=== PATIENT | male | born 1995 | race Caucasian/White ===

== ENCOUNTER 2023-09-14 21:12 | Inpatient (IN) | payer OTHER ==
[2023-09-14] MEDS ORDERED: VANCOMYCIN IV PER PHARMACY 1 EACH MISC MISCELLANE PRN (22:04)
[2023-09-14 22:35] LABS: Basophils % (A) 0 %; Eosinophils # (A) 0.2 k/uL (0-0.7); Eosinophils % (A) 1 %; Lymphocytes # (A) 0.7 k/uL (1.0-4.8); Lymphocytes % (A) 3 %; MCHC 37.2 g/dL (31.0-37.0); MCV 83.3 fL (80.0-100.0); Mean Platelet Volume 7.1; Monocytes % (A) 4 %; Neutrophils # (A) 20.7 k/uL (1.3-7.7); Neutrophils % (A) 91 %; Platelet Count 305 k/uL (150-450); RBC 5.16 m/uL (4.30-5.90); RDW 12.4 % (11.5-15.5); WBC 22.9 k/uL (3.8-10.6)
[2023-09-14] MEDS: SODIUM CHLORIDE 0.9% 500 ML 500 ML IV SCH (22:50)
[2023-09-14] MEDS: IBUPROFEN 600 MG TAB PO STA (22:50)
[2023-09-14 23:02] LABS: ALT 24 U/L (4-49); AST 20 U/L (17-59); African American GFR (CKD) >90 (>60 ml/min/1.73 sqM); Albumin 4.5 g/dL (3.5-5.0); Alkaline Phosphatase 84 U/L (38-126); Anion Gap 11 mmol/L; Blood Urea Nitrogen 12 mg/dL (9-20); Calcium 9.4 mg/dL (8.4-10.2); Carbon Dioxide 24 mmol/L (22-30); Chloride 100 mmol/L (98-107); Glucose 125 mg/dL (74-99); Non-African American GFR(CKD) >90 (>60 ml/min/1.73 sqM); Potassium 3.5 mmol/L (3.5-5.1); Sodium 135 mmol/L (137-145); Total Bilirubin 0.9 mg/dL (0.2-1.3); Total Protein 7.5 g/dL (6.3-8.2)
[2023-09-14] MEDS: AMPICILLIN-SULBACTAM 3 GM in SODIUM CHLORIDE 0.9% 100 ML IVPB STA (23:52)
[2023-09-14] MEDS: LORazepam 2 MG/ML INJ IV STA (23:53)
[2023-09-14] MEDS: ONDANSETRON 4 MG/2 ML VIAL IVP STA (23:57)
[2023-09-15] MEDS: VANCOMYCIN 1,500 MG in SODIUM CHLORIDE 0.9% 500 ML 500 ML IVPB ONE (00:05)
--- NOTE | 2023-09-15 00:30 | CT ---
EXAM: CT Right Upper Extremity With Intravenous Contrast CLINICAL HISTORY: ITS.REASON CT Reason: right forearm - abscess/cellulitis/foreign body TECHNIQUE: Axial computed tomography images of the right upper extremity with intravenous contrast. CTDI is 15.8 mGy and DLP is 1316 mGy-cm. This CT exam was performed using one or more of the following dose reduction techniques: automated exposure control, adjustment of the mA and/or kV according to patient size, and/or use of iterative reconstruction technique. Coronal and sagittal reformatted images were created and reviewed. 1121 images COMPARISON: No relevant prior studies available. FINDINGS: Limitations: Limitation: Motion artifact decreases sensitivity of this exam. Bones/joints: No acute findings. Soft tissues: Moderate subcutaneous soft tissue edema in the volar aspect of the forearm with overlying skin thickening suggests cellulitis. No soft tissue gas or foreign object. IMPRESSION: Moderate subcutaneous soft tissue edema in the volar aspect of the forearm with overlying skin thickening suggests cellulitis.
--- NOTE | 2023-09-15 00:37 | ED ---
General Adult HPI - General Chief complaint: Skin/Abscess/Foreign Body Stated complaint: Abscess on Right Arm Time Seen by Provider: 09/14/23 21:20 Source: patient, EMS Mode of arrival: EMS Limitations: no limitations - History of Present Illness Initial comments: 27-year-old male with past medical history of alcohol abuse, heroin abuse who pr esents emergency department from [facility]. He noticed that he had some redness and swelling to his right forearm on Friday when he got to the facility. They have been monitoring it however they did not provide him with any medications such as antibiotics. The swelling and pain has gotten worse in the extremity and patient was transported over for further evaluation. He does arrive with a low-grade fever. Has intense pain in his right forearm. No drainage. There is red streaking which is going into his right axillary region. Patient has nausea with vomiting. Denies history of MRSA. Denies concern for retained needle. No other alleviating, precipitating or modifying factors - Related Data Home Medications Medication Instructions Recorded Confirmed Acetaminophen Tab [Tylenol] 650 mg PO Q4H PRN 09/15/23 09/15/23 Calcium/Magnesium/Zinc W/Vitamin D 1 tab PO TID PRN 09/15/23 09/15/23 334/134/5mg Chlorpheniramine Maleate 4 mg PO Q4H PRN 09/15/23 09/15/23 [Chlor-Trimeton] Hyoscyamine Sulfate [Levsin] 0.125 mg PO QID PRN 09/15/23 09/15/23 Ibuprofen [Motrin Ib] 600 mg PO Q6H PRN 09/15/23 09/15/23 Loperamide [Imodium] 4 mg PO QID PRN 09/15/23 09/15/23 Mylanta 30 ml PO Q4H PRN 09/15/23 09/15/23 buprenorphine HCL [Subutex] See Taper SL DIRECTED 09/15/23 09/15/23 cloNIDine HCL [Catapres] 0.1 mg PO Q4H PRN 09/15/23 09/15/23 ondansetron HCL [Zofran] 8 mg PO Q6H PRN 09/15/23 09/15/23 Allergies Allergy/AdvReac Type Severity Reaction Status Date / Time No Known Allergies Allergy Verified 09/15/23 08:53 Review of Systems ROS Statement: Those systems with pertinent positive or pertinent negative responses have been documented in the HPI. ROS Other: All systems not noted in ROS Statement are negative. Past Medical History History of Any Multi-Drug Resistant Organisms: None Reported Past Psychological History: Bipolar, Depression Smoking Status: Vaper Past Alcohol Use History: Daily, Heavy Past Drug Use History: Cocaine, IV Drug Use General Exam Limitations: no limitations General appearance: alert, in no apparent distress Head exam: Present: atraumatic, normocephalic, normal inspection Eye exam: Present: normal appearance, PERRL, EOMI. Absent: scleral icterus, conjunctival injection, periorbital swelling ENT exam: Present: normal exam, mucous membranes moist Neck exam: Present: normal inspection. Absent: tenderness, meningismus, lymphadenopathy Respiratory exam: Present: normal lung sounds bilaterally. Absent: respiratory distress, wheezes, rales, rhonchi, stridor Cardiovascular Exam: Present: regular rate, normal rhythm, normal heart sounds. Absent: systolic murmur, diastolic murmur, rubs, gallop, clicks GI/Abdominal exam: Present: soft, normal bowel sounds. Absent: distended, tenderness, guarding, rebound, rigid Extremities exam: Present: tenderness (To palpation of the right anterior forearm. There is overlying redness and induration. No fluctuance appreciated. 2+ radial and ulnar pulses. Compartments are soft), normal capillary refill. Absent: pedal edema, joint swelling, calf tenderness Back exam: Present: normal inspection Neurological exam: Present: alert, oriented X3, CN II-XII intact Psychiatric exam: Present: normal affect, normal mood Skin exam: Present: warm, dry, intact, normal color. Absent: rash Course Vital Signs 09/14/23 09/15/23 09/15/23 21:18 00:15 01:08 Temperature 100.0 F H Pulse Rate 68 69 68 Pulse Rate [ Pulse Oximetery ] Respiratory 18 16 18 Rate Blood Pressure 162/96 172/114 169/87 Blood Pressure [Supine] O2 Sat by Pulse 98 100 100 Oximetry 09/15/23 09/15/23 01:40 02:04 Temperature 98.6 F Pulse Rate 68 Pulse Rate [ 91 Pulse Oximetery ] Respiratory 18 20 Rate Blood Pressure 169/87 Blood Pressure 159/97 [Supine] O2 Sat by Pulse 100 100 Oximetry Medical Decision Making - Medical Decision Making Was pt. sent in by a medical professional or institution (, [facility], [employer] REPA[employer], urgent care, hospital, or assisted...) When possible be specific @ -Patient sent in from [facility] Did you speak to anyone other than the patient for history (EMS, parent, family, police, friend...)? What history was obtained from this source @ -Spoke with EMS for history Did you review nursing and triage notes (agree or disagree)? Why? @ -I reviewed and agree with nursing and triage notes Were old charts reviewed (outside hosp., previous admission, EMS record, old EKG, old radiological studies, urgent care reports/EKG's, assisted records)? Report findings @ -Reviewed the patient's chart from [facility] Differential Diagnosis (chest pain, altered mental status, abdominal pain women, abdominal pain men, vaginal bleeding, weakness, fever, dyspnea, syncope, headache, dizziness, GI bleed, back pain, seizure, CVA, palpatations, mental health, musculoskeletal)? @ -Abscess, cellulitis, DVT EKG interpreted by me (3pts min.). @ -yes, Demonstrates sinus rhythm with rate of 72. AK interval 148. QRS 86. QTc 418. No acute ST segment elevations or depressions X-rays interpreted by me (1pt min.). @ -None done CT interpreted by me (1pt min.). @ -yes, was completed and does not demonstrate an abscess at this time but does demonstrate cellulitis U/S interpreted by me (1pt. min.). @ -None done What testing was considered but not performed or refused? (CT, X-rays, U/S, labs)? Why? @ -None What meds were considered but not given or refused? Why? @ -None Did you discuss the management of the patient with other professionals (professionals i.e. , [facility], TR[employer] B[employer] REPAIRER, lab, RT, psych nurse, certified social workers in health care, hog driver, teacher, workers' compensation hearings officer, case work aide)? Give summary @ -Spoke with [facility] for admission Was smoking cessation discussed for >3mins.? @ -No Was critical care preformed (if so, how long)? @ -No Were there social determinants of health that impacted care today? How? (Homelessness, low income, unemployed, alcoholism, drug addiction, transportation, low edu. Level, literacy, decrease access to med. care, long term, rehab)? @ -Patient is currently in rehab. Redness was noted however patient was never started on antibiotics Was there de-escalation of care discussed even if they declined (Discuss DNR or withdrawal of care, Hospice)? DNR status @ -No What co-morbidities impacted this encounter? (DM, HTN, Smoking, COPD, CAD, Cancer, CVA, ARF, Chemo, Hep., AIDS, mental health diagnosis, sleep apnea, morbid obesity)? @ -IVDA Was patient admitted / discharged? Hospital course, mention meds given and route, prescriptions, significant lab abnormalities, going to OR and other pertinent info. @ -Upon arrival patient was placed into room 26. Thorough history and physical exam was performed. Patient's right arm was evaluated and is indurated. IV was established. Laboratory studies are conducted. CT was performed which demonstrated source of infection as cellulitis without abscess. This was at 0029. patient does receive antibiotics and IV fluids. Patient requires admission to the hospital due to advanced cellulitis. He was agreeable to this. Spoke with [facility] - Dr. Colvin for admission Undiagnosed new problem with uncertain prognosis? @ -No Drug Therapy requiring intensive monitoring for toxicity (Heparin, Nitro, Insulin, Cardizem)? @ -No Were any procedures done? @ -No Diagnosis/symptom? @ -Acute right forearm cellulitis, evaluation for abscess, history of IVDA, leukocytosis Acute, or Chronic, or Acute on Chronic? @ -Acute Uncomplicated (without systemic symptoms) or Complicated (systemic symptoms)? @ -Complicated Side effects of treatment? @ -No Exacerbation, Progression, or Severe Exacerbation? @ -No Poses a threat to life or bodily function? How? (Chest pain, [place], [place], pneumonia, PE, COPD, DKA, ARF, appy, cholecystitis, CVA, Diverticulitis, Homicidal, Suicidal, threat to staff... and all critical care pts) @ -Yes as patient is diagnosed with sepsis - Lab Data Result diagrams: 09/19/23 07:45 09/19/23 07:45 Lab Results 09/14/23 09/14/23 09/14/23 Range/Units 22:23 22:23 22:23 WBC 22.9 H (3.8-10.6) k/uL RBC 5.16 (4.30-5.90) m/uL Hgb 16.0 (13.0-17.5) gm/dL Hct 43.0 (39.0-53.0) % MCV 83.3 (80.0-100.0) fL MCH 31.0 (25.0-35.0) pg MCHC 37.2 H (31.0-37.0) g/dL RDW 12.4 (11.5-15.5) % Plt Count 305 (150-450) k/uL MPV 7.1 Neutrophils % 91 % Lymphocytes % 3 % Monocytes % 4 % Eosinophils % 1 % Basophils % 0 % Neutrophils # 20.7 H (1.3-7.7) k/uL Lymphocytes # 0.7 L (1.0-4.8) k/uL Monocytes # 1.0 (0-1.0) k/uL Eosinophils # 0.2 (0-0.7) k/uL Basophils # 0.0 (0-0.2) k/uL Sodium 135 L (137-145) mmol/L Potassium 3.5 (3.5-5.1) mmol/L Chloride 100 (98-107) mmol/L Carbon Dioxide 24 (22-30) mmol/L Anion Gap 11 mmol/L BUN 12 (9-20) mg/dL Creatinine 0.54 L (0.66-1.25) mg/dL Est GFR (CKD-EPI)AfAm >90 (>60 ml/min/1.73 sqM) Est GFR (CKD-EPI)NonAf >90 (>60 ml/min/1.73 sqM) Glucose 125 H (74-99) mg/dL Plasma Lactic Acid Byron 1.0 (0.7-2.0) mmol/L Calcium 9.4 (8.4-10.2) mg/dL Total Bilirubin 0.9 (0.2-1.3) mg/dL AST 20 (17-59) U/L ALT 24 (4-49) U/L Alkaline Phosphatase 84 (38-126) U/L Total Protein 7.5 (6.3-8.2) g/dL Albumin 4.5 (3.5-5.0) g/dL Disposition Clinical Impression: Cellulitis Disposition: ADMITTED IP TO THIS HOSP Condition: Stable Is patient prescribed a controlled substance at d/c from ED?: No Time of Disposition: 00:51 Decision to Admit Reason: Admit from EC Decision Date: 09/15/23 Decision Time: 00:51
[2023-09-15] MEDS ORDERED: NALOXONE 0.4 MG/ML 1 ML VIAL IV PRN (00:51)
[2023-09-15] MEDS: LORazepam 2 MG/ML INJ IV STA (00:51)
[2023-09-15] MEDS: ACETAMINOPHEN TAB 325 MG TAB PO PRN (02:07)
[2023-09-15] MEDS: SODIUM CHLORIDE 0.9% 1,000 ML IV SCH (03:13)
[2023-09-15] MEDS: VANCOMYCIN 1,500 MG in SODIUM CHLORIDE 0.9% 500 ML 500 ML IVPB SCH (07:41)
[2023-09-15] MEDS: ONDANSETRON 4 MG/2 ML VIAL IVP PRN (07:42)
[2023-09-15] MEDS: hydrOXYzine HCL 25 MG TAB PO STA (09:05)
--- NOTE | 2023-09-15 10:55 | P.HPIM ---
History of Present Illness This is a pleasant 27 years old male with known history of substance abuse. He went to [facility] last Friday because he is tired of his lifestyle and he wants to quit his substance abuse, he injects opioids and fentanyl and drinks alcohol 1 pint per day and he was counseled to quit and patient agrees Also patient is cigarette smoker 1 pack/day and he was counseled to quit and he agrees to the nicotine patch The same day he went to [facility] [place] he was having small area of redness in his right forearm which gradually get worse and now extending through the entire right forearm mainly on the ventral surface with some swelling warmth and tenderness. No loss of function in the hand or numbness or significant weakness. He denies chest pain or dyspnea or coughing no dizziness headache weakness or numbness However patient has low appetite for 4 days, persistent vomiting with no blood, he denies abdominal pain but he has little discomfort in his upper abdomen most likely related to his relentless vomiting. He is having no bowel movement but passing gas. He feels anxious but he denies depression, he denies suicidal or homicidal ideation, he denies delusion or hallucination Patient is hemodynamically stable, he has low-grade temperature about 100 He has leukocytosis of 22,000 Rest of CBC, BMP and liver enzymes were unremarkable Right upper extremity ultrasound showing thick skin and edema showing cellulitis, no strong evidence of an abscess EKG showing sinus rhythm at [address]-T changes and QTc 418 Patient currently covered with IV vancomycin and Normal Saline at 130 mL/h Review of Systems Review of systems CONSTITUTIONAL: No fever, no malaise, no fatigue. HEENT: No recent visual problems or hearing problems. Denied any sore throat. CARDIOVASCULAR: No orthopnea, PND, no palpitations, no syncope. PULMONARY: No shortness of breath, no cough, no hemoptysis. GASTROINTESTINAL: No diarrhea, no abdominal pain. Normoactive bowel sounds. NEUROLOGICAL: No headaches, no weakness, no numbness. HEMATOLOGICAL: Denies any bleeding or petechiae. GENITOURINARY: Denies any burning micturition, frequency, or urgency. -MUSCULOSKELETAL/RHEUMATOLOGICAL: Denies any joint pain, swelling, or any muscle pain. Except above ENDOCRINE: Denies any polyuria or polydipsia. Past Medical History History of Any Multi-Drug Resistant Organisms: None Reported Past Surgical History: No Surgical Hx Reported Past Psychological History: Bipolar, Depression Smoking Status: Vaper Past Alcohol Use History: Daily, Heavy Past Drug Use History: Cocaine, IV Drug Use Medications and Allergies Home Medications Medication Instructions Recorded Confirmed Type Acetaminophen Tab [Tylenol] 650 mg PO Q4H PRN 09/15/23 09/15/23 History Calcium/Magnesium/Zinc W/Vitamin D 1 tab PO TID PRN 09/15/23 09/15/23 History 334/134/5mg Chlorpheniramine Maleate 4 mg PO Q4H PRN 09/15/23 09/15/23 History [Chlor-Trimeton] Hyoscyamine Sulfate [Levsin] 0.125 mg PO QID PRN 09/15/23 09/15/23 History Ibuprofen [Motrin Ib] 600 mg PO Q6H PRN 09/15/23 09/15/23 History Loperamide [Imodium] 4 mg PO QID PRN 09/15/23 09/15/23 History Mylanta 30 ml PO Q4H PRN 09/15/23 09/15/23 History buprenorphine HCL [Subutex] See Taper SL DIRECTED 09/15/23 09/15/23 History cloNIDine HCL [Catapres] 0.1 mg PO Q4H PRN 09/15/23 09/15/23 History ondansetron HCL [Zofran] 8 mg PO Q6H PRN 09/15/23 09/15/23 History Allergies Allergy/AdvReac Type Severity Reaction Status Date / Time No Known Allergies Allergy Verified 09/15/23 08:53 Physical Exam Vitals: Vital Signs Temp Pulse Pulse Resp BP BP Pulse Ox 09/15/23 09:54 100 09/15/23 07:30 98.1 F 73 20 159/82 100 09/15/23 02:04 98.6 F 91 20 159/97 100 09/15/23 01:40 68 18 169/87 100 09/15/23 01:08 68 18 169/87 100 09/15/23 00:15 69 16 172/114 100 09/14/23 21:18 100.0 F H 68 18 162/96 98 Intake and Output 09/14/23 09/15/23 09/15/23 22:59 06:59 14:59 Intake Total 480 Balance 480 Intake: Oral 480 Other: # Voids 1 Weight 90.718 kg 90.718 kg GENERAL: The patient is alert and oriented x3, not in any acute distress. Well developed, well nourished. HEENT: Pupils are round and equally reacting to light. EOMI. No scleral icterus. No conjunctival pallor. Normocephalic, atraumatic. No pharyngeal erythema. No thyromegaly. CARDIOVASCULAR: S1 and S2 present. No murmurs, rubs, or gallops. PULMONARY: Chest is clear to auscultation, no wheezing , no crackles. ABDOMEN: Soft, nontender, nondistended, normoactive bowel sounds. No palpable organomegaly. MUSCULOSKELETAL: No joint swelling or deformity. -EXTREMITIES: No cyanosis, clubbing, or pedal edema. Right forearm swelling redness and tenderness NEUROLOGICAL: Gross neurological examination did not reveal any focal deficits. SKIN: No rashes. no petechiae. Results CBC & Chem 7: 09/14/23 22:23 09/14/23 22:23 Labs: Abnormal Lab Results - Last 24 Hours (Table) 09/14/23 09/14/23 Range/Units 22:23 22:23 WBC 22.9 H (3.8-10.6) k/uL MCHC 37.2 H (31.0-37.0) g/dL Neutrophils # 20.7 H (1.3-7.7) k/uL Lymphocytes # 0.7 L (1.0-4.8) k/uL Sodium 135 L (137-145) mmol/L Creatinine 0.54 L (0.66-1.25) mg/dL Glucose 125 H (74-99) mg/dL Thrombosis Risk Factor Assmnt - Choose All That Apply Any of the Below Risk Factors Present?: Yes Each Factor Represents 1 point: Obesity (BMI >25) Thrombosis Risk Factor Assessment Total Risk Factor Score: 1 Thrombosis Risk Factor Assessment Level: Low Risk Assessment and Plan Assessment: Acute right forearm cellulitis, severe on admission Sepsis with fever and leukocytosis, present on admission Substance abuse with opioids with IV drug abuse with fentanyl and others Alcohol use disorder at risk of alcohol withdrawal Nicotine dependence Anxiety, most likely related to substance abuse and withdrawal Plan: Continue with antibiotic with infectious disease consult. Currently on IV vancomycin Continue with aggressive IV hydration Start Librium 3 times daily to help with his alcohol withdrawal, substance withdrawal as well as anxiety Resume his Librium from [place] place it as a scheduled 0.1 mg twice daily Check KUB and venous Doppler ultrasound rule out DVT Labs and medication were reviewed.. Continue same treatment. Continue with symptomatic treatment. Resume home medication. Monitor labs and vitals. DVT and GI prophylaxis. Further recommendations as per clinical course of the patient DVT prophylaxis: Subcutaneous heparin GI Prophylaxis: Pepcid Prognosis is guarded
[2023-09-15] MEDS: cloNIDine HCL 0.1 MG TAB PO SCH (11:37)
[2023-09-15] MEDS: NICOTINE 21MG/24HR PATCH TRANSDERM STA (11:38)
--- NOTE | 2023-09-15 11:53 | XR ---
EXAMINATION TYPE: XR KUB DATE OF EXAM: 09/15/2023 11:27 AM CLINICAL INDICATION:Male, 27 years old with history of vomiting; COMPARISON: None. TECHNIQUE: One radiographic view of the abdomen was obtained. FINDINGS: The bowel gas pattern is nonspecific without dilated loops of small or large bowel. There i s no evidence for organomegaly or pneumoperitoneum. The osseous structures are intact. No abnormal calcifications are present. Fecal material and gas are demonstrated throughout the colon and rectum. IMPRESSION: Nonspecific bowel gas pattern without radiographic evidence for acute process.
--- NOTE | 2023-09-15 13:46 | US ---
EXAMINATION TYPE: US venous doppler duplex UE RT DATE OF EXAM: 09/15/2023 COMPARISON: NONE CLINICAL INDICATION: Male, 27 years old with history of cellulitis; No hx of DVT. Cellulitis SIDE PERFORMED: Right arm Right Arm: No evidence of DVT. Radial and ulnar veins appear to stay separate through the upper arm, appear to branch from axillary vein. Great amount of forearm edema seen at area of redness. Unable to visualize cephalic vein. IMPRESSION: 1. No evidence for deep vein tendinosis. 2. Unable to visualize the cephalic vein possibly due to thrombosis. Correlate clinically. 3. subcutaneous edema throughout the arm correlate possible secondary to #2. Correlate for celluliti s.
[2023-09-15] MEDS: HYOSCYAMINE SULFATE 0.125 MG TAB PO PRN (14:06)
[2023-09-15] MEDS: IBUPROFEN 400 MG TAB PO PRN (17:47)
[2023-09-15] MEDS: FAMOTIDINE 20 MG/2 ML VIAL IV SCH (21:02)
[2023-09-15] MEDS: HEPARIN SODIUM,PORCINE 5,000 UNIT/ML 1 ML VIAL SQ SCH (21:03)
[2023-09-15] MEDS: LORazepam 2 MG/ML INJ IV PRN ×2 (21:56→23:46)
--- NOTE | 2023-09-15 23:38 | P.CONS ---
History of Present Illness - Reason for Consult Consult date: 09/15/23 Right arm cellulitis history of IVDA Requesting physician: Julissa Lechuga - Chief Complaint Swelling redness of the right arm x few days - History of Present Illness Patient is a 27-year-old male past medical history significant for bipolar depression and history of IV drug use for more than 15 years presenting to the hospital from the [facility] for evaluation of worsening swelling and redness to the right forearm patient mention he did missed while injecting in a hurry and the next day noticed to have increasing swelling redness to the right forearm that has progressed to get worse over the last few days patient complaining of pain to be sharp about 8 out of 10 without any radiation with associated swelling redness denies high-grade fever on presentation to the hospital patient did have a temperature of 100 F patient was not tachycardic hypotensive or hypoxic did have a white count of 22.9 creatinine [address] moderate subcutaneous soft tissue edema suggesting cellulitis patient was started on vancomycin cultures obtained currently pending infectious he was consulted for further management of antibiotic therapy Review of Systems Positive point and negatives has been mentioned in the HPI, complete review of systems was performed and all other systems are negative Past Medical History History of Any Multi-Drug Resistant Organisms: None Reported Past Surgical History: No Surgical Hx Reported Past Psychological History: Bipolar, Depression Smoking Status: Vaper Past Alcohol Use History: Daily, Heavy Past Drug Use History: Cocaine, IV Drug Use Medications and Allergies Home Medications Medication Instructions Recorded Confirmed Type Acetaminophen Tab [Tylenol] 650 mg PO Q4H PRN 09/15/23 09/15/23 History Calcium/Magnesium/Zinc W/Vitamin D 1 tab PO TID PRN 09/15/23 09/15/23 History 334/134/5mg Chlorpheniramine Maleate 4 mg PO Q4H PRN 09/15/23 09/15/23 History [Chlor-Trimeton] Hyoscyamine Sulfate [Levsin] 0.125 mg PO QID PRN 09/15/23 09/15/23 History Ibuprofen [Motrin Ib] 600 mg PO Q6H PRN 09/15/23 09/15/23 History Loperamide [Imodium] 4 mg PO QID PRN 09/15/23 09/15/23 History Mylanta 30 ml PO Q4H PRN 09/15/23 09/15/23 History buprenorphine HCL [Subutex] See Taper SL DIRECTED 09/15/23 09/15/23 History cloNIDine HCL [Catapres] 0.1 mg PO Q4H PRN 09/15/23 09/15/23 History ondansetron HCL [Zofran] 8 mg PO Q6H PRN 09/15/23 09/15/23 History Allergies Allergy/AdvReac Type Severity Reaction Status Date / Time No Known Allergies Allergy Verified 09/15/23 08:53 Physical Exam Vitals: Vital Signs Temp Pulse Pulse Resp BP BP Pulse Ox 09/15/23 09:54 100 09/15/23 07:30 98.1 F 73 20 159/82 100 09/15/23 02:04 98.6 F 91 20 159/97 100 09/15/23 01:40 68 18 169/87 100 09/15/23 01:08 68 18 169/87 100 09/15/23 00:15 69 16 172/114 100 09/14/23 21:18 100.0 F H 68 18 162/96 98 Intake and Output 09/14/23 09/15/23 09/15/23 22:59 06:59 14:59 Intake Total 480 Balance 480 Intake: Oral 480 Other: # Voids 1 Weight 90.718 kg 90.718 kg GENERAL DESCRIPTION: Middle-aged male lying in bed, no distress. No tachypnea or accessory muscle of respiration use. HEENT: Shows Pallor , no scleral icterus. Oral mucous membrane is dry. No pharyngeal erythema or thrush NECK: Trachea central, no thyromegaly. LUNGS: Unlabored breathing. Clear to auscultation anteriorly. No wheeze or crackle. HEART: S1, S2, regular rate and rhythm. No loud murmur ABDOMEN: Soft, no tenderness , guarding or rigidity, no organomegaly EXTREMITIES: Significant swelling redness of the right forearm which is warm and tender to touch SKIN: No rash, no masses palpable. NEUROLOGICAL: The patient is awake, alert, oriented x3, mood and affect normal. Results CBC & Chem 7: 09/19/23 07:45 09/19/23 07:45 Labs: Abnormal Lab Results - Last 24 Hours (Table) 09/14/23 09/14/23 Range/Units 22:23 22:23 WBC 22.9 H (3.8-10.6) k/uL MCHC 37.2 H (31.0-37.0) g/dL Neutrophils # 20.7 H (1.3-7.7) k/uL Lymphocytes # 0.7 L (1.0-4.8) k/uL Sodium 135 L (137-145) mmol/L Creatinine 0.54 L (0.66-1.25) mg/dL Glucose 125 H (74-99) mg/dL Assessment and Plan (1) Abscess of right forearm Status: Acute Code(s): L02.413 - CUTANEOUS ABSCESS OF RIGHT UPPER LIMB S NOMED Code(s): 95684147416423098 (2) Cellulitis Status: Acute Code(s): L03.90 - CELLULITIS, UNSPECIFIED SNOMED Code(s): 199978273 (3) IV drug user Status: Acute Code(s): F19.90 - OTHER PSYCHOACTIVE SUBSTANCE USE, UNSPECIFIED, UNCOMPLICATED SNOMED Code(s): 472564506 Plan: 1patient was in the hospital right forearm pain swelling redness in this patient who did have history of injection drug use and apparently missed a vein while injecting into the right forearm with subsequent development of this abscess likely from gram-positive skin en gram-negative infection less likely but not entirely excluded 2-patient benefit of surgical evaluation and possible drainage of this abscess and deep culture 3. Will cover with vancomycin pharmacy to dose while watching his kidney function closely- We will follow on clinical condition and cultures to further adjust medication if needed Thank you for this consultation we will follow the patient along with you Dictation was produced using [employer] dictation software. please excuse any grammatical, word or spelling errors. Time with Patient: Greater than 30
[2023-09-16] MEDS: LORazepam 2 MG/ML INJ IV PRN (03:51)
[2023-09-16] MEDS: VANCOMYCIN TROUGH DUE 1 EACH MISC MISCELLANE ONE (07:41)
[2023-09-16] MEDS: THIAMINE 100 MG/ML 2 ML VIAL IVP SCH (09:12)
[2023-09-16] MEDS: hydrOXYzine HCL 25 MG TAB PO PRN (09:12)
[2023-09-16 11:01] LABS: Basophils # (A) 0.04 X 10*3/uL (0.00-0.10); Basophils % (A) 0.3 %; Eosinophils # (A) 0.13 X 10*3/uL (0.04-0.35); Eosinophils % (A) 1.1 %; HCT 38.9 % (39.6-50.0); HGB 13.4 g/dL (13.0-17.0); Lymphocytes # (A) 1.06 X 10*3/uL (0.90-5.00); MCH 28.8 pg (27.0-32.0); MCHC 34.4 g/dL (32.0-37.0); MCV 83.7 FL (80.0-97.0); Mean Platelet Volume 9.4 FL (9.5-12.2); Monocytes # (A) 0.83 X 10*3/uL (0.20-1.00); Monocytes % (A) 7.1 %; NRBC Per 100 WBC 0 X 10*3/uL (0.00-0.01); Neutrophils # (A) 9.66 X 10*3/uL (1.80-7.70); Neutrophils % (A) 82.2 %; Platelet Count 255 X 10*3/uL (140-440); RBC 4.65 X 10*6/uL (4.40-5.60); RDW 12.4 % (11.5-14.5); WBC 11.76 X 10*3/uL (4.50-10.00)
[2023-09-16 11:18] LABS: ALT 27 U/L (10-49); AST 20 U/L (14-35); Albumin 3.8 g/dL (3.8-4.9); Albumin/Globulin Ratio 1.58 Ratio (1.60-3.17); Alkaline Phosphatase 71 U/L (41-126); Bilirubin, Conjugated <0.20 mg/dL (0.20-0.40); Bilirubin,Unconjugated >0.40 mg/dL (0.20-1.00); Blood Urea Nitrogen 7.7 mg/dL (9.0-27.0); Calcium 9.4 mg/dL (8.7-10.3); Carbon Dioxide 22.7 mmol/L (21.6-31.8); Chloride 108 mmol/L (96-109); Globulin 2.4 g/dL (1.6-3.3); Glucose 92 mg/dL (70-110); Potassium 3.5 mmol/L (3.5-5.5); Sodium 144 mmol/L (135-145); Total Bilirubin 0.6 mg/dL (0.3-1.2); Total Protein 6.2 g/dL (6.2-8.2)
--- NOTE | 2023-09-16 12:22 | P.PN ---
Subjective This is a pleasant 27 years old male with known history of substance abuse. He went to [place] last Friday because he is tired of his lifestyle and he wants to quit his substance abuse, he injects opioids and fentanyl and drinks alcohol 1 pint per day and he was counseled to quit and patient agrees Also patient is cigarette smoker 1 pack/day and he was counseled to quit and he agrees to the nicotine patch The same day he went to [place] he was having small area of redness in his right forearm which gradually get worse and now extending through the entire right forearm mainly on the ventral surface with some swelling warmth and tenderness. No loss of function in the hand or numbness or significant weakness. He denies chest pain or dyspnea or coughing no dizziness headache weakness or numbness However patient has low appetite for 4 days, persistent vomiting with no blood, he denies abdominal pain but he has little discomfort in his upper abdomen most likely related to his relentless vomiting. He is having no bowel movement but passing gas. He feels anxious but he denies depression, he denies suicidal or homicidal brien ation, he denies delusion or hallucination Patient is hemodynamically stable, he has low-grade temperature about 100 He has leukocytosis of 22,000 Rest of CBC, BMP and liver enzymes were unremarkable Right upper extremity ultrasound showing thick skin and edema showing cellulitis, no strong evidence of an abscess EKG showing sinus rhythm at [address]-T changes and QTc 418 Patient currently covered with IV vancomycin and Normal Saline at 130 mL/h 09/16/2023 Patient right forearm cellulitis significantly improved almost more than 50% while he was started on IV vancomycin IV fluids were discontinued He is developing alcohol withdrawal and last night he has high CIWA protocol, he was already on Librium 20 mg 3 times daily, CIWA protocol was started. He is more sleepy this morning and more calm. KUB of the abdomen is reviewed by myself showing no significant obstruction Ultrasound of the right upper extremity reviewed by myself showing no deep venous thrombosis also with the radiologist Review of systems CONSTITUTIONAL: No fever, no malaise, no fatigue. HEENT: No recent visual problems or hearing problems. Denied any sore throat. CARDIOVASCULAR: No orthopnea, PND, no palpitations, no syncope. PULMONARY: No shortness of breath, no cough, no hemoptysis. GASTROINTESTINAL: No diarrhea, no nausea, no vomiting, no abdominal pain. Normoactive bowel sounds. Active Medications Generic Name Dose Route Start Last Admin Trade Name Freq PRN Reason Stop Dose Admin Acetaminophen 650 mg 09/15/23 00:51 09/16/23 06:38 Acetaminophen Tab 325 Mg Tab PO 650 mg Q6HR PRN Administration Mild Pain or Fever > 100.5 Chlordiazepoxide HCl 20 mg 09/15/23 10:45 09/16/23 09:23 Chlordiazepoxide 10 Mg Cap PO 20 mg TID JERRI Administration Clonidine 0.1 mg 09/15/23 11:00 09/16/23 09:12 Clonidine Hcl 0.1 Mg Tab PO 0.1 mg BID JERRI Administration Famotidine 20 mg 09/15/23 21:00 09/16/23 09:11 Famotidine 20 Mg/2 Ml Vial IV 20 mg Q12HR JERRI Administration Heparin Sodium (Porcine) 5,000 unit 09/15/23 21:00 09/16/23 09:11 Heparin Sodium,Porcine 5,000 Unit/Ml 1 Ml Vial SQ Not Given Q12HR JERRI Hydroxyzine HCl 25 mg 09/15/23 08:30 09/16/23 09:12 Hydroxyzine Hcl 25 Mg Tab PO 25 mg QID PRN Administration Anxiety Hyoscyamine 0.125 mg 09/15/23 10:50 09/15/23 14:06 Hyoscyamine Sulfate 0.125 Mg Tab PO 0.125 mg QID PRN Administration GI Upset Sodium Chloride 1,000 mls @ 75 mls/hr 09/15/23 01:00 09/16/23 11:41 Saline 0.9% IV 75 mls/hr .[id number] JERRI Administration Vancomycin HCl 1,500 mg/ 500 mls @ 167 mls/hr 09/15/23 08:00 09/16/23 09:26 Sodium Chloride IVPB 167 mls/hr Q8H JERRI Administration Ibuprofen 400 mg 09/15/23 00:51 09/16/23 01:23 Ibuprofen 400 Mg Tab PO 400 mg Q6HR PRN Administration Mild Pain or Fever > 100.5 Lorazepam 1 mg 09/15/23 21:42 09/16/23 01:24 Lorazepam 2 Mg/Ml Inj IV 1 mg Q1HR PRN Administration CIWA 10 to 15 Lorazepam 1 mg 09/15/23 21:42 09/16/23 09:23 Lorazepam 2 Mg/Ml Inj IV 1 mg Q2HR PRN Administration CIWA 8 or 9 Lorazepam 2 mg 09/15/23 21:42 09/15/23 23:46 Lorazepam 2 Mg/Ml Inj IV 09/17/23 21:44 2 mg Q10M PRN Administration CIWA 16 or higher Naloxone HCl 0.2 mg 09/15/23 00:51 Naloxone 0.4 Mg/Ml 1 Ml Vial IV Q2M PRN Opioid Reversal Ondansetron HCl 4 mg 09/15/23 00:51 09/16/23 03:51 Ondansetron 4 Mg/2 Ml Vial IVP 4 mg Q8HR PRN Administration Nausea And Vomiting Thiamine HCl 100 mg 09/16/23 09:00 09/16/23 09:12 Thiamine 100 Mg/Ml 2 Ml Vial IVP 100 mg DAILY JERRI Administration Objective - Vital Signs Vital signs: Vital Signs Temp 97.4 F L 09/16/23 07:09 Pulse 77 09/16/23 07:09 Resp 16 09/16/23 07:09 BP 152/93 09/16/23 07:09 Pulse Ox 100 09/16/23 07:09 FiO2 Intake & Output 09/15/23 09/16/23 09/16/23 18:59 06:59 18:59 Other: # Voids 5 - Exam GENERAL: The patient is alert and oriented x3, not in any acute distress. Well developed, well nourished. HEENT: Pupils are round and equally reacting to light. EOMI. No scleral icterus. No conjunctival pallor. Normocephalic, atraumatic. No pharyngeal erythema. No thyromegaly. CARDIOVASCULAR: S1 and S2 present. No murmurs, rubs, or gallops. PULMONARY: Chest is clear to auscultation, no wheezing , no crackles. ABDOMEN: Soft, nontender, nondistended, normoactive bowel sounds. No palpable organomegaly. -MUSCULOSKELETAL: No joint swelling or deformity. Improving right forearm cellulitis and swelling EXTREMITIES: No cyanosis, clubbing, or pedal edema. NEUROLOGICAL: Gross neurological examination did not reveal any focal deficits. SKIN: No rashes. no petechiae. - Labs CBC & Chem 7: 09/16/23 05:34 09/16/23 05:34 Labs: Abnormal Lab Results - Last 24 Hours (Table) 09/16/23 09/16/23 Range/Units 05:34 05:34 WBC 11.76 H (4.50-10.00) X 10*3/uL Hct 38.9 L (39.6-50.0) % MPV 9.4 L (9.5-12.2) FL Neutrophils # 9.66 H (1.80-7.70) X 10*3/uL Anion Gap 13.30 H (4.00-12.00) mmol/L BUN 7.7 L (9.0-27.0) mg/dL BUN/Creatinine Ratio 11.00 L (12.00-20.00) Ratio Albumin/Globulin Ratio 1.58 L (1.60-3.17) Ratio Assessment and Plan Assessment: Acute right forearm cellulitis, severe on admission Sepsis with fever and leukocytosis, present on admission Substance abuse with opioids with IV drug abuse with fentanyl and others Alcohol use disorder with alcohol withdrawal and delirium tremens Nicotine dependence Anxiety, most likely related to substance abuse and withdrawal Plan: Continue with antibiotic with infectious disease consult. Currently on IV vancomycin IV hydration was stopped Start Librium 3 times daily to help with his alcohol withdrawal, substance withdrawal as well as anxiety Resume his Librium 20 mg tree times daily. Also he is on [facility] protocol Check KUB and venous Doppler ultrasound rule out DVT: reviewed , remarkable Labs and medication were reviewed.. Continue same treatment. Continue with symptomatic treatment. Resume home medication. Monitor labs and vitals. DVT and GI prophylaxis. Further recommendations as per clinical course of the patient DVT prophylaxis: Subcutaneous heparin GI Prophylaxis: Pepcid Prognosis is guarded
--- NOTE | 2023-09-16 15:13 | P.PN ---
Subjective Progress Note Date: 09/16/23 Principal diagnosis: Reason for follow-up is right forearm abscess and cellulitis from IV drug use Patient is a 27-year-old male past medical history significant for bip olar depression and history of IV drug use presenting to the hospital with increasing pain swelling redness around the right forearm from IV drug use diagnosis and abscess and cellulitis. On today's evaluation that is 09/16/2023, Patient is afebrile patient is currently on room air patient is lethargic today and did not answer any question apparently the patient has received Ativan as he was high on the CIWA pathway per the nursing staff. Patient white count is down to 11.76, creatinine 0.7 blood cultures are pending Objective - Vital Signs Vital signs: Vital Signs Temp 99.2 F 09/16/23 14:15 Pulse 79 09/16/23 14:15 Resp 20 09/16/23 14:15 BP 172/102 09/16/23 14:15 Pulse Ox 100 09/16/23 14:15 FiO2 Intake & Output 09/15/23 09/16/23 09/16/23 18:59 06:59 18:59 Other: # Voids 5 - Exam GENERAL DESCRIPTION: Middle-age male lying in bed in no distress RESPIRATORY SYSTEM: Unlabored breathing , decreased breath sounds at bases HEART: S1 S2 regular rate and rhythm , ABDOMEN: Soft , no tenderness EXTREMITIES: Right forearm swelling redness slightly decreased areas mostly fluctuant - Labs CBC & Chem 7: 09/16/23 05:34 09/16/23 05:34 Labs: Abnormal Lab Results - Last 24 Hours (Table) 09/16/23 09/16/23 Range/Units 05:34 05:34 WBC 11.76 H (4.50-10.00) X 10*3/uL Hct 38.9 L (39.6-50.0) % MPV 9.4 L (9.5-12.2) FL Neutrophils # 9.66 H (1.80-7.70) X 10*3/uL Anion Gap 13.30 H (4.00-12.00) mmol/L BUN 7.7 L (9.0-27.0) mg/dL BUN/Creatinine Ratio 11.00 L (12.00-20.00) Ratio Albumin/Globulin Ratio 1.58 L (1.60-3.17) Ratio Microbiology - Last 24 Hours (Table) 09/14/23 23:45 Blood Culture - Preliminary Blood 09/14/23 23:30 Blood Culture - Preliminary Blood Assessment and Plan (1) Abscess of right forearm Current Visit: Yes Status: Acute Code(s): L02.413 - CUTANEOUS ABSCESS OF RIGHT UPPER LIMB SNOMED Code(s): 32147799699735230 (2) IV drug user Current Visit: Yes Status: Acute Code(s): F19.90 - OTHER PSYCHOACTIVE SUBSTANCE USE, UNSPECIFIED, UNCOMPLICATED SNOMED Code(s): 685963160 Plan: 1patient was in the hospital right forearm pain swelling redness in this patient who did have history of injection drug use and apparently missed a vein while injecting into the right forearm with subsequent development of this abscess likely from gram-positive skin en gram-negative infection less likely but not entirely excluded 2-patient benefit of surgical evaluation and possible drainage of this abscess and deep culture this was discussed with the admitting team 3. Patient to continue with the vancomycin while waiting for the culture to finalize Dictation was produced using [employer] dictation software. please excuse any grammatical, word or spelling errors.
[2023-09-17 06:48] LABS: African American GFR (CKD) >90 (>60 ml/min/1.73 sqM); Non-African American GFR(CKD) >90 (>60 ml/min/1.73 sqM)
--- NOTE | 2023-09-17 10:39 | P.PN ---
Subjective This is a pleasant 27 years old male with known history of substance abuse. He went to [place] last Friday because he is tired of his lifestyle and he wants to quit his substance abuse, he injects opioids and fentanyl and drinks alcohol 1 pint per day and he was counseled to quit and patient agrees Also patient is cigarette smoker 1 pack/day and he was counseled to quit and he agrees to the nicotine patch The same day he went to [place] he was having small area of redness in his right forearm which gradually get worse and now extending through the entire right forearm mainly on the ventral surface with some swelling warmth and tenderness. No loss of function in the hand or numbness or significant weakness. He denies chest pain or dyspnea or coughing no dizziness headache weakness or numbness However patient has low appetite for 4 days, persistent vomiting with no blood, he denies abdominal pain but he has little discomfort in his upper abdomen most likely related to his relentless vomiting. He is having no bowel movement but passing gas. He feels anxious but he denies depression, he denies suicidal or homicidal brien ation, he denies delusion or hallucination Patient is hemodynamically stable, he has low-grade temperature about 100 He has leukocytosis of 22,000 Rest of CBC, BMP and liver enzymes were unremarkable Right upper extremity ultrasound showing thick skin and edema showing cellulitis, no strong evidence of an abscess EKG showing sinus rhythm at [address]-T changes and QTc 418 Patient currently covered with IV vancomycin and Normal Saline at 130 mL/h 09/16/2023 Patient right forearm cellulitis significantly improved almost more than 50% while he was started on IV vancomycin IV fluids were discontinued He is developing alcohol withdrawal and last night he has high CIWA protocol, he was already on Librium 20 mg 3 times daily, CIWA protocol was started. He is more sleepy this morning and more calm. KUB of the abdomen is reviewed by myself showing no significant obstruction Ultrasound of the right upper extremity reviewed by myself showing no deep venous thrombosis also with the radiologist 09/17/2023 Patient right forearm abscess looks similar to yesterday or slightly better, it showed significant improvement over the first 24 hours and currently improving slowly. Although the imaging were negative for an abscess but an occluded looks fluctuating so we consulted surgical team which is most likely they going to treat it conservatively as well Currently his been covered with IV vancomycin. Leukocytosis improved. His abdominal symptoms he had an admission also has improved, patient says he was able to eat yesterday with no issues with bowel movements. No nausea vomiting. Blood pressure elevated therefore we increased his clonidine 0.2 mg twice a day Continued on [facility] protocol Objective - Vital Signs Vital signs: Vital Signs Temp 98.4 F 09/17/23 07:46 Pulse 64 09/17/23 07:46 Resp 18 09/17/23 07:46 BP 170/109 09/17/23 07:46 Pulse Ox 100 09/17/23 07:46 FiO2 Intake & Output 09/16/23 09/17/23 09/17/23 18:59 06:59 18:59 Other: Voiding Method Toilet Urinal # Voids 3 3 - Exam GENERAL: The patient is alert and oriented x3, not in any acute distress. Well developed, well nourished. HEENT: Pupils are round and equally reacting to light. EOMI. No scleral icterus. No conjunctival pallor. Normocephalic, atraumatic. No pharyngeal erythema. No thyromegaly. CARDIOVASCULAR: S1 and S2 present. No murmurs, rubs, or gallops. PULMONARY: Chest is clear to auscultation, no wheezing , no crackles. ABDOMEN: Soft, nontender, nondistended, normoactive bowel sounds. No palpable organomegaly. -MUSCULOSKELETAL: No joint swelling or deformity. Improving right forearm cellulitis and swelling EXTREMITIES: No cyanosis, clubbing, or pedal edema. NEUROLOGICAL: Gross neurological examination did not reveal any focal deficits. SKIN: No rashes. no petechiae. - Labs CBC & Chem 7: 09/16/23 05:34 09/17/23 05:46 Labs: Abnormal Lab Results - Last 24 Hours (Table) 09/16/23 09/16/23 09/17/23 Range/Units 05:34 05:34 05:46 WBC 11.76 H (4.50-10.00) X 10*3/uL Hct 38.9 L (39.6-50.0) % MPV 9.4 L (9.5-12.2) FL Neutrophils # 9.66 H (1.80-7.70) X 10*3/uL Anion Gap 13.30 H (4.00-12.00) mmol/L BUN 7.7 L (9.0-27.0) mg/dL Creatinine 0.63 L (0.66-1.25) mg/dL BUN/Creatinine Ratio 11.00 L (12.00-20.00) Ratio Albumin/Globulin Ratio 1.58 L (1.60-3.17) Ratio Microbiology - Last 24 Hours (Table) 09/14/23 23:45 Blood Culture - Preliminary Blood 09/14/23 23:30 Blood Culture - Preliminary Blood Assessment and Plan Assessment: Acute right forearm cellulitis, severe on admission Sepsis with fever and leukocytosis, present on admission Substance abuse with opioids with IV drug abuse with fentanyl and others Alcohol use disorder with alcohol withdrawal and delirium tremens Nicotine dependence Anxiety, most likely related to substance abuse and withdrawal Plan: Continue with antibiotic with infectious disease consult. Currently on IV vancomycin IV hydration was stopped Start Librium 3 times daily to help with his alcohol withdrawal, substance withdrawal as well as anxiety Resume his Librium 20 mg tree times daily. Also he is on [facility] protocol Check KUB and venous Doppler ultrasound rule out DVT: reviewed , remarkable Labs and medication were reviewed.. Continue same treatment. Continue with symptomatic treatment. Resume home medication. Monitor labs and vitals. DVT and GI prophylaxis. Further recommendations as per clinical course of the patient DVT prophylaxis: Subcutaneous heparin GI Prophylaxis: Pepcid Prognosis is guarded
[2023-09-17] MEDS: cloNIDine HCL 0.1 MG TAB PO STA (10:41)
--- NOTE | 2023-09-17 14:03 | P.GSCN ---
History of Present Illness Consult date: 09/17/23 History of present illness: CHIEF COMPLAINT: Left arm redness and swelling HISTORY OF PRESENT ILLNESS: This is a 27-year-old male with history of heroin IV drug abuse and alcohol abuse. He presents to the ER from [place]. Patient reports that he missed the vein while injecting his right arm with heroin Friday. The patient has had increased swelling redness and pain in the right arm. He did have a low-grade temp of 100 and elevated white count on admission. CT scan of the arm had reported moderate subcutaneous soft tissue edema of the forearm with overlying skin thickening suggestive of cellulitis. Patient currently on antibiotics. The erythema is decreasing compared to the area that was marked. Patient seen and examined with Dr. Laureano PAST MEDICAL HISTORY: Bipolar, depression PAST SURGICAL HISTORY: See below MEDICATIONS: See below ALLERGIES: See below SOCIAL HISTORY: IV drug use heroin, daily heavy alcohol use REVIEW OF SYSTEMS: CONSTITUTIONAL: Denies fever or chills. HEENT: Denies blurred vision, vision changes, or eye pain. Denies hemoptysis CARDIOVASCULAR: Denies chest pain or pressure. RESPIRATORY: No shortness of breath. GASTROINTESTINAL: See HPI for pertinent findings HEMATOLOGIC: Denies bleeding disorders. GENITOURINARY: Denies any blood in urine or increased urinary frequency. SKIN: Denies pruitis. Denies rash. PHYSICAL EXAM: VITAL SIGNS: Reviewed GENERAL: Well-developed in no acute distress. ABDOMEN: Soft. Nondistended. Nontender NEUROLOGIC: Alert and oriented. Cranial nerves II through XII grossly intact. Extremities: Right arm bicep area with induration and erythema tender with palpation. No drainage noted. Marked area of erythema has decreased LABORATORY DATA: WBC 22.9 down to 11.76 hemoglobin 13.4 platelets 255 Sodium is 144 potassium 3.5 creatinine 0.63 Lactic acid 1.0 IMAGING: CT scan as stated above ASSESSMENT: 1. Right arm cellulitis with induration 2. IV drug use PLAN: -Continue antibiotics -Continue supportive care -Continue to monitor. Patient may need ultrasound of right arm to monitor for fluid collection if any worsening of symptoms Physician Quality Control Manager note has been reviewed by physician. Signing provider agrees with the documented findings, assessment, and plan of care. Past Medical History History of Any Multi-Drug Resistant Organisms: None Reported Past Surgical History: No Surgical Hx Reported Past Psychological History: Bipolar, Depression Smoking Status: Vaper Past Alcohol Use History: Daily, Heavy Past Drug Use History: Cocaine, IV Drug Use Medications and Allergies Home Medications Medication Instructions Recorded Confirmed Type Acetaminophen Tab [Tylenol] 650 mg PO Q4H PRN 09/15/23 09/15/23 History Calcium/Magnesium/Zinc W/Vitamin D 1 tab PO TID PRN 09/15/23 09/15/23 History 334/134/5mg Chlorpheniramine Maleate 4 mg PO Q4H PRN 09/15/23 09/15/23 History [Chlor-Trimeton] Hyoscyamine Sulfate [Levsin] 0.125 mg PO QID PRN 09/15/23 09/15/23 History Ibuprofen [Motrin Ib] 600 mg PO Q6H PRN 09/15/23 09/15/23 History Loperamide [Imodium] 4 mg PO QID PRN 09/15/23 09/15/23 History Mylanta 30 ml PO Q4H PRN 09/15/23 09/15/23 History buprenorphine HCL [Subutex] See Taper SL DIRECTED 09/15/23 09/15/23 History cloNIDine HCL [Catapres] 0.1 mg PO Q4H PRN 09/15/23 09/15/23 History ondansetron HCL [Zofran] 8 mg PO Q6H PRN 09/15/23 09/15/23 History Allergies Allergy/AdvReac Type Severity Reaction Status Date / Time No Known Allergies Allergy Verified 09/15/23 08:53 Surgical - Exam Vital Signs Temp Pulse Resp BP Pulse Ox 100.0 F H 68 18 162/96 98 09/14/23 21:18 09/14/23 21:18 09/14/23 21:18 09/14/23 21:18 09/14/23 21:18 Results - Labs 09/16/23 05:34 09/17/23 05:46 Abnormal Lab Results - Last 24 Hours (Table) 09/16/23 09/16/23 09/17/23 Range/Units 05:34 05:34 05:46 WBC 11.76 H (4.50-10.00) X 10*3/uL Hct 38.9 L (39.6-50.0) % MPV 9.4 L (9.5-12.2) FL Neutrophils # 9.66 H (1.80-7.70) X 10*3/uL Anion Gap 13.30 H (4.00-12.00) mmol/L BUN 7.7 L (9.0-27.0) mg/dL Creatinine 0.63 L (0.66-1.25) mg/dL BUN/Creatinine Ratio 11.00 L (12.00-20.00) Ratio Albumin/Globulin Ratio 1.58 L (1.60-3.17) Ratio Microbiology - Last 24 Hours (Table) 09/14/23 23:45 Blood Culture - Preliminary Blood 09/14/23 23:30 Blood Culture - Preliminary Blood Diabetes panel 09/16/23 09/17/23 Range/Units 05:34 05:46 Sodium 144 (135-145) mmol/L Potassium 3.5 (3.5-5.5) mmol/L Chloride 108 (96-109) mmol/L Carbon Dioxide 22.7 (21.6-31.8) mmol/L BUN 7.7 L (9.0-27.0) mg/dL Creatinine 0.7 0.63 L (0.6-1.5) mg/dL Glucose 92 (70-110) mg/dL Calcium 9.4 (8.7-10.3) mg/dL AST 20 (14-35) U/L ALT 27 (10-49) U/L Alkaline Phosphatase 71 (41-126) U/L Total Protein 6.2 (6.2-8.2) g/dL Albumin 3.8 (3.8-4.9) g/dL Calcium panel 09/16/23 Range/Units 05:34 Calcium 9.4 (8.7-10.3) mg/dL Albumin 3.8 (3.8-4.9) g/dL Pituitary panel 09/16/23 09/17/23 Range/Units 05:34 05:46 Sodium 144 (135-145) mmol/L Potassium 3.5 (3.5-5.5) mmol/L Chloride 108 (96-109) mmol/L Carbon Dioxide 22.7 (21.6-31.8) mmol/L BUN 7.7 L (9.0-27.0) mg/dL Creatinine 0.7 0.63 L (0.6-1.5) mg/dL Glucose 92 (70-110) mg/dL Calcium 9.4 (8.7-10.3) mg/dL Adrenal panel 09/16/23 09/17/23 Range/Units 05:34 05:46 Sodium 144 (135-145) mmol/L Potassium 3.5 (3.5-5.5) mmol/L Chloride 108 (96-109) mmol/L Carbon Dioxide 22.7 (21.6-31.8) mmol/L BUN 7.7 L (9.0-27.0) mg/dL Creatinine 0.7 0.63 L (0.6-1.5) mg/dL Glucose 92 (70-110) mg/dL Calcium 9.4 (8.7-10.3) mg/dL Total Bilirubin 0.6 (0.3-1.2) mg/dL AST 20 (14-35) U/L ALT 27 (10-49) U/L Alkaline Phosphatase 71 (41-126) U/L Total Protein 6.2 (6.2-8.2) g/dL Albumin 3.8 (3.8-4.9) g/dL
--- NOTE | 2023-09-17 16:40 | P.PN ---
Subjective Progress Note Date: 09/17/23 Principal diagnosis: Reason for follow-up is right forearm abscess and cellulitis from IV drug use Patient is a 27-year-old male past medical history significant for bip olar depression and history of IV drug use presenting to the hospital with increasing pain swelling redness around the right forearm from IV drug use diagnosis and abscess and cellulitis. On today's evaluation that is 09/17/2023, patient has been afebrile, patient is breathing comfortably and is currently on room air, patient denies having any significant cough no chest pain shortness of breath, patient denies nausea vomiting or diarrhea and no abdominal pain pain to the right forearm has slig htly decreased in intensity still about 6 out of 10. Creatinine 0.63 no CBC was done today vancomycin trough is 16.3 Objective - Vital Signs Vital signs: Vital Signs Temp 98.4 F 09/17/23 07:46 Pulse 64 09/17/23 07:46 Resp 18 09/17/23 07:46 BP 170/109 09/17/23 07:46 Pulse Ox 100 09/17/23 07:46 FiO2 Intake & Output 09/16/23 09/17/23 09/17/23 18:59 06:59 18:59 Other: Voiding Method Toilet Urinal # Voids 3 3 - Exam GENERAL DESCRIPTION: Middle-age male lying in bed in no distress RESPIRATORY SYSTEM: Unlabored breathing , decreased breath sounds at bases HEART: S1 S2 regular rate and rhythm , ABDOMEN: Soft , no tenderness EXTREMITIES: Right forearm swelling redness slightly decreased areas mostly fluctuant - Labs CBC & Chem 7: 09/16/23 05:34 09/17/23 05:46 Labs: Abnormal Lab Results - Last 24 Hours (Table) 09/17/23 Range/Units 05:46 Creatinine 0.63 L (0.66-1.25) mg/dL Microbiology - Last 24 Hours (Table) 09/14/23 23:45 Blood Culture - Preliminary Blood 09/14/23 23:30 Blood Culture - Preliminary Blood Assessment and Plan (1) Abscess of right forearm Current Visit: No Status: Acute Code(s): L02.413 - CUTANEOUS ABSCESS OF RIGHT UPPER LIMB SNOMED Code(s): 44139797440665398 (2) IV drug user Current Visit: No Status: Acute Code(s): F19.90 - OTHER PSYCHOACTIVE SUBSTA NCE USE, UNSPECIFIED, UNCOMPLICATED SNOMED Code(s): 450367872 Plan: 1patient was in the hospital right forearm pain swelling redness in this patient who did have history of injection drug use and apparently missed a vein while injecting into the right forearm with subsequent development of this abscess likely from gram-positive skin en gram-negative infection less likely but not entirely excluded 2-patient will benefit of surgical evaluation and possible drainage of this abscess and deep culture General surgery consulted await recommendation 3. Patient to continue with the vancomycin we will check a CBC and a CRP with a.m. lab Dictation was produced using [employer] dictation software. please excuse any grammatical, word or spelling errors. Time with Patient: Less than 30
[2023-09-17] MEDS: cloNIDine HCL 0.2 MG TAB PO SCH (21:28)
[2023-09-18] MEDS: VANCOMYCIN TROUGH DUE 1 EACH MISC MISCELLANE ONE (07:46)
--- NOTE | 2023-09-18 09:33 | P.PN ---
Subjective This is a pleasant 27 years old male with known history of substance abuse. He went to [facility] last Friday because he is tired of his lifestyle and he wants to quit his substance abuse, he injects opioids and fentanyl and drinks alcohol 1 pint per day and he was counseled to quit and patient agrees Also patient is cigarette smoker 1 pack/day and he was counseled to quit and he agrees to the nicotine patch The same day he went to [facility] he was having small area of redness in his right forearm which gradually get worse and now extending through the entire right forearm mainly on the ventral surface with some swelling warmth and tenderness. No loss of function in the hand or numbness or significant weakness. He denies chest pain or dyspnea or coughing no dizziness headache weakness or numbness However patient has low appetite for 4 days, persistent vomiting with no blood, he denies abdominal pain but he has little discomfort in his upper abdomen most likely related to his relentless vomiting. He is having no bowel movement but passing gas. He feels anxious but he denies depression, he denies suicidal or homicidal brien ation, he denies delusion or hallucination Patient is hemodynamically stable, he has low-grade temperature about 100 He has leukocytosis of 22,000 Rest of CBC, BMP and liver enzymes were unremarkable Right upper extremity ultrasound showing thick skin and edema showing cellulitis, no strong evidence of an abscess EKG showing sinus rhythm at [address]-T changes and QTc 418 Patient currently covered with IV vancomycin and Normal Saline at 130 mL/h 09/16/2023 Patient right forearm cellulitis significantly improved almost more than 50% while he was started on IV vancomycin IV fluids were discontinued He is developing alcohol withdrawal and last night he has high CIWA protocol, he was already on Librium 20 mg 3 times daily, CIWA protocol was started. He is more sleepy this morning and more calm. KUB of the abdomen is reviewed by myself showing no significant obstruction Ultrasound of the right upper extremity reviewed by myself showing no deep venous thrombosis also with the radiologist 09/17/2023 Patient right forearm abscess looks similar to yesterday or slightly better, it showed significant improvement over the first 24 hours and currently improving slowly. Although the imaging were negative for an abscess but an occluded looks fluctuating so we consulted surgical team which is most likely they going to treat it conservatively as well Currently his been covered with IV vancomycin. Leukocytosis improved. His abdominal symptoms he had an admission also has improved, patient says he was able to eat yesterday with no issues with bowel movements. No nausea vomiting. Blood pressure elevated therefore we increased his clonidine 0.2 mg twice a day Continued on CIWA protocol 09/18/2023 Patient arrived from is improving, less redness about is becoming into a large fluctuant area in the proximal forearm ventrally Initial imaging showing no evidence of an abscess Currently patient has been followed closely by general surgery team for further evaluation and to examine the need for debridement or no. Remains on IV vancomycin No significant withdrawal symptoms We will lower his Librium dose 20 mg down to 10 mg 3 times a day, this taper can be continued and the next subsequent days Plan discussed with patient is agreeable Objective - Vital Signs Vital signs: Vital Signs Temp 98.0 F 09/18/23 07:09 Pulse 60 09/18/23 07:09 Resp 18 09/18/23 07:09 BP 154/94 09/18/23 07:09 Pulse Ox 100 09/18/23 07:09 FiO2 Intake & Output 09/17/23 09/18/23 09/18/23 18:59 06:59 18:59 Other: # Voids 2 4 - Exam GENERAL: The patient is alert and oriented x3, not in any acute distress. Well developed, well nourished. HEENT: Pupils are round and equally reacting to light. EOMI. No scleral icterus. No conjunctival pallor. Normocephalic, atraumatic. No pharyngeal erythema. No thyromegaly. CARDIOVASCULAR: S1 and S2 present. No murmurs, rubs, or gallops. PULMONARY: Chest is clear to auscultation, no wheezing , no crackles. ABDOMEN: Soft, nontender, nondistended, normoactive bowel sounds. No palpable organomegaly. -MUSCULOSKELETAL: No joint swelling or deformity. Improving right forearm cellulitis and swelling EXTREMITIES: No cyanosis, clubbing, or pedal edema. NEUROLOGICAL: Gross neurological examination did not reveal any focal deficits. SKIN: No rashes. no petechiae. - Labs CBC & Chem 7: 09/16/23 05:34 09/17/23 05:46 Labs: Microbiology - Last 24 Hours (Table) 09/14/23 23:45 Blood Culture - Preliminary Blood 09/14/23 23:30 Blood Culture - Preliminary Blood Assessment and Plan Assessment: Acute right forearm cellulitis, severe on admission Sepsis with fever and leukocytosis, present on admission Substance abuse with opioids with IV drug abuse with fentanyl and others Alcohol use disorder with alcohol withdrawal and delirium tremens Nicotine dependence Anxiety, most likely related to substance abuse and withdrawal Plan: Continue with antibiotic with infectious disease consult. Currently on IV vancomycin continue with Librium lower dose to 10 mg 3 times daily also he is on CIWA protocol General surgery consult Labs and medication were reviewed.. Continue same treatment. Continue with symptomatic treatment. Resume home medication. Monitor labs and vitals. DVT and GI prophylaxis. Further recommendations as per clinical course of the patient DVT prophylaxis: Subcutaneous heparin GI Prophylaxis: Pepcid Prognosis is guarded
[2023-09-18 10:03] LABS: HCT 42.5 % (39.6-50.0); MCH 29.6 pg (27.0-32.0); MCHC 35.3 g/dL (32.0-37.0); NRBC Per 100 WBC 0 X 10*3/uL (0.00-0.01); Platelet Count 313 X 10*3/uL (140-440); RBC 5.06 X 10*6/uL (4.40-5.60); RDW 12.3 % (11.5-14.5); WBC 8.52 X 10*3/uL (4.50-10.00)
[2023-09-18 10:30] LABS: Basophils # (A) 0.07 X 10*3/uL (0.00-0.10); Basophils % (A) 0.8 %; Eosinophils # (A) 0.52 X 10*3/uL (0.04-0.35); Eosinophils % (A) 6.1 %; Lymphocytes # (A) 1.98 X 10*3/uL (0.90-5.00); Lymphocytes % (A) 23.2 %; Monocytes # (A) 0.53 X 10*3/uL (0.20-1.00); Monocytes % (A) 6.2 %; Neutrophils # (A) 5.38 X 10*3/uL (1.80-7.70); Neutrophils % (A) 63.2 %; RBC Morphology Normal (Normal)
--- NOTE | 2023-09-18 14:07 | US ---
EXAMINATION TYPE: US extremity nonvasculr ltd RT DATE OF EXAM: 09/18/2023 COMPARISON: NONE CLINICAL INDICATION: Male, 27 years old with history of right forearm abscess; abscess, cellulitis TECHNIQUE: several images taken at area of concern FINDINGS: there is a 7.6x1.5x4.9cm complex area noted at patients area of concern with increased vas cularity. There appears to be movement within with compression. IMPRESSION: Complex fluid collection in the area of concern compatible with abscess.
--- NOTE | 2023-09-18 15:09 | P.PN ---
Subjective Progress Note Date: 09/18/23 CHIEF COMPLAINT: Right arm cellulitis and induration HISTORY OF PRESENT ILLNESS: Patient's right arm cellulitis is showing improvement. He reports improvement in his pain. No drainage. Afebrile. WBC has normalized from 11-8.52. Ultrasound of right arm shows complex fluid collection in the area of concern compatible with abscess PHYSICAL EXAM: VITAL SIGNS: Reviewed. GENERAL: Well-developed in no acute distress. Extremities right arm decreased erythema. There is now area of fluctuance noted. ASSESSMENT: 1. Right arm abscess. Ultrasound now reporting evidence of fluid collection 2. IV drug use PLAN: -Patient scheduled for incision and drainage of abscess tomorrow with Dr. Reinaldo Marinop.oVero after midnight -Continue antibiotics Physician Crib Pad Maker note has been reviewed by physician. Signing provider agrees with the documented findings, assessment, and plan of care. I have personally seen and examined the patient, reviewed the [employer] /PAs history, exam and MDM and agree with the assessment and plan as written. Based on total visit time, I have performed more than 50% of the visit. As above: Patient is repeat ultrasound shows fluid collection. Area of fluctuance on exam. Will proceed with incision and drainage right arm abscess at this time. Risks of bleeding, infection, possible need for further surgery, neurovascular injury, recurrence. He understands and wishes to proceed. Objective - Vital Signs Vital signs: Vital Signs Temp 98.0 F 09/18/23 12:44 Pulse 61 09/18/23 12:44 Resp 18 09/18/23 12:44 BP 142/85 09/18/23 12:44 Pulse Ox 100 09/18/23 12:44 FiO2 Intake & Output 09/17/23 09/18/23 09/18/23 18:59 06:59 18:59 Other: Voiding Method Toilet Urinal # Voids 2 4 - Labs CBC & Chem 7: 09/18/23 07:46 09/17/23 05:46 Labs: Abnormal Lab Results - Last 24 Hours (Table) 09/18/23 09/18/23 Range/Units 07:46 07:46 MPV 9.0 L (9.5-12.2) FL Eosinophils # 0.52 H (0.04-0.35) X 10*3/uL C-Reactive Protein 3.30 H (0.00-0.80) mg/dL Microbiology - Last 24 Hours (Table) 09/14/23 23:45 Blood Culture - Preliminary Blood 09/14/23 23:30 Blood Culture - Preliminary Blood
--- NOTE | 2023-09-18 15:22 | P.PN ---
Subjective Progress Note Date: 09/18/23 Principal diagnosis: Reason for follow-up is right forearm abscess and cellulitis from IV drug use Patient is a 27-year-old male past medical history significant for bip olar depression and history of IV drug use presenting to the hospital with increasing pain swelling redness around the right forearm from IV drug use diagnosis and abscess and cellulitis. On today's evaluation that is 09/18/2023,the patient remains to be afebrile patient is on room air and breathing comfortably patient has received Ativan slightly lethargic and did not provide any history no vomiting diarrhea no changes reported. Patient white count normalized to 8.52 Vanco trough is 14.5 blood cultures pending Objective - Vital Signs Vital signs: Vital Signs Temp 98.0 F 09/18/23 07:09 Pulse 60 09/18/23 07:09 Resp 18 09/18/23 07:09 BP 154/94 09/18/23 07:09 Pulse Ox 99 09/18/23 09:49 FiO2 Intake & Output 09/17/23 09/18/23 09/18/23 18:59 06:59 18:59 Other: Voiding Method Toilet Urinal # Voids 2 4 - Exam GENERAL DESCRIPTION: Middle-age male lying in bed in no distress RESPIRATORY SYSTEM: Unlabored breathing , decreased breath sounds at bases HEART: S1 S2 regular rate and rhythm , ABDOMEN: Soft , no tenderness EXTREMITIES: Right forearm swelling redness slightly decreased however there is areas of significant fluctuance - Labs CBC & Chem 7: 09/18/23 07:46 09/17/23 05:46 Labs: Abnormal Lab Results - Last 24 Hours (Table) 09/18/23 09/18/23 Range/Units 07:46 07:46 MPV 9.0 L (9.5-12.2) FL Eosinophils # 0.52 H (0.04-0.35) X 10*3/uL C-Reactive Protein 3.30 H (0.00-0.80) mg/dL Microbiology - Last 24 Hours (Table) 09/14/23 23:45 Blood Culture - Preliminary Blood 09/14/23 23:30 Blood Culture - Preliminary Blood Assessment and Plan (1) Abscess of right forearm Current Visit: No Status: Acute Code(s): L02.413 - CUTANEOUS ABSCESS OF RIGHT UPPER LIMB SNOMED Code(s): 88250197890283397 (2) IV drug user Current Visit: No Status: Acute Code(s): F19.90 - OTHER PSYCHOACTIVE SUBSTANCE USE, UNSPECIFIED, UNCOMPLICATED SNOMED Code(s): 259340557 Plan: 1patient was in the hospital right forearm pain swelling redness in this patient who did have history of injection drug use and apparently missed a vein while injecting into the right forearm with subsequent development of this abscess likely from gram-positive skin en gram-negative infection less likely but not entirely excluded 2-patient did have an area of significant fluctuance suspicious for an abscess I will order an ultrasound to confirm the abscess that may need to be drained 3. Patient to continue with the vancomycin and monitor his clinical course closely Dictation was produced using [employer] dictation software. please excuse any grammatical, word or spelling errors. Time with Patient: Less than 30
[2023-09-18] MEDS ORDERED: PROPOFOL 10 MG/ML 20 ML VIAL IV ONE (18:16)
[2023-09-18] MEDS ORDERED: LIDOCAINE 1% INJ 10MG/ML (20 ML MDV) ONE (18:16)
[2023-09-18] MEDS ORDERED: ePHEDrine 50 MG/ML 1 ML VIAL ONE (18:16)
[2023-09-18] MEDS ORDERED: HYDROmorphone (PF) 1 MG/ML ONE (18:16)
[2023-09-18] MEDS ORDERED: MIDAZOLAM 2 MG/2 ML VIAL ONE (18:16)
[2023-09-18] MEDS ORDERED: fentaNYL (PF) 50 MCG/ML 2 ML AMP ONE (18:16)
[2023-09-18] MEDS ORDERED: SUCCINYLCHOLINE CHLORIDE 200 MG/10 ML VIAL IV ONE (18:16)
[2023-09-18] MEDS: IV FLUID CONTINUATION 1,000 ML IV ONE (18:23)
[2023-09-18] MEDS: BUPIVACAINE (PF) 0.25% 30 ML VIAL SQ ONE (18:51)
--- NOTE | 2023-09-18 19:06 | P.OP ---
Date of Procedure: 09/18/23 Procedure(s) Performed: PREOPERATIVE DIAGNOSIS: Right forearm abscess POSTOPERATIVE DIAGNOSIS: Same PROCEDURE: Incision and drainage right forearm abscess SURGEON: Rienaldo EBL: 25 cc ANESTHESIA: General COMPLICATIONS: None OPERATIVE PROCEDURE: Patient placed on the operating table in the supine position. He was placed under general anesthesia. An oblique incision was made overlying the area of fluctuance in the right forearm. Incision length 6 to 7 cm. Entrance into a abscess cavity measuring [address] This was irrigated and cultured. Purulent fluid with some clots were seen. This was fully evacuated. After irrigation no further purulence or tunneling was noted. Wound was packed with iodophor gauze. Sterile outer dressing applied. Area was localized with quarter percent Marcaine solution. DISPOSITION: Stable to recovery room
[2023-09-18] MEDS: HYDROmorphone 0.5 MG/0.5 ML SYRINGE IVP ONE ×3 (19:27→19:40)
[2023-09-18] MEDS: KETOROLAC 15 MG/ML 1 ML VIAL IVP SCH (20:19)
[2023-09-18] MEDS: FAMOTIDINE 20 MG TAB PO SCH (20:20)
[2023-09-19] MEDS: HYDROcodone/APAP 5-325MG 1 EACH TAB PO STA (03:07)
[2023-09-19 08:20] LABS: African American GFR (CKD) >90 (>60 ml/min/1.73 sqM); Anion Gap 8 mmol/L; Blood Urea Nitrogen 9 mg/dL (9-20); Calcium 9.1 mg/dL (8.4-10.2); Carbon Dioxide 23 mmol/L (22-30); Chloride 111 mmol/L (98-107); Glucose 91 mg/dL (74-99); Non-African American GFR(CKD) >90 (>60 ml/min/1.73 sqM); Potassium 3.4 mmol/L (3.5-5.1); Sodium 142 mmol/L (137-145)
[2023-09-19 08:48] LABS: HCT 41.1 % (39.0-53.0); HGB 13.5 gm/dL (13.0-17.5); MCH 29.3 pg (25.0-35.0); MCHC 32.8 g/dL (31.0-37.0); Platelet Count 289 k/uL (150-450); RDW 12.7 % (11.5-15.5); WBC 9.6 k/uL (3.8-10.6)
[2023-09-19 08:57] LABS: MCV 89.3 fL (80.0-100.0)
[2023-09-19] MEDS: HYDROcodone/APAP 5-325MG 1 EACH TAB PO PRN (09:04)
[2023-09-19 09:58] LABS: Eosinophils # (M) 0.77 k/uL (0-0.7); Monocytes # (M) 0.48 k/uL (0-1.0); Neutrophils # (M) 5.76 k/uL (1.3-7.7); Neutrophils % (M) 60 %; Nucleated Red Blood Cells 0 /100 WBC (0-0); Total Cells Counted 100
[2023-09-19] MEDS: POTASSIUM CHLORIDE ER 20 MEQ TAB.ER PO STA (12:47)
--- NOTE | 2023-09-19 13:10 | P.PN ---
Subjective Progress Note Date: 09/19/23 This is a pleasant 27 years old male with known history of substance abuse. He went to [facility] last Friday because he is tired of his lifestyle and he wants to quit his substance abuse, he injects opioids and fentanyl and drinks alcohol 1 pint per day and he was counseled to quit and patient agrees Also patient is cigarette smoker 1 pack/day and he was counseled to quit and he agrees to the nicotine patch The same day he went to [facility] he was having small area of redness in his right forearm which gradually get worse and now extending through the entire right forearm mainly on the ventral surface with some swelling warmth and tenderness. No loss of function in the hand or numbness or significant weakness. He denies chest pain or dyspnea or coughing no dizziness headache weakness or numbness However patient has low appetite for 4 days, persistent vomiting with no blood, he denies abdominal pain but he has little discomfort in his upper abdomen most likely related to his relentless vomiting. He is having no bowel movement but passing gas. He feels anxious but he denies depression, he denies suicidal or homicidal ideation, he denies delusion or hallucination Patient is hemodynamically stable, he has low-grade temperature about 100 He has leukocytosis of 22,000 Rest of CBC, BMP and liver enzymes were unremarkable Right upper extremity ultrasound showing thick skin and edema showing cellulitis, no strong evidence of an abscess EKG showing sinus rhythm at [address]-T changes and QTc 418 Patient currently covered with IV vancomycin and Normal Saline at 130 mL/h 09/16/2023 Patient right forearm cellulitis significantly improved almost more than 50% while he was started on IV vancomycin IV fluids were discontinued He is developing alcohol withdrawal and last night he has high CIWA protocol, he was already on Librium 20 mg 3 times daily, CIWA protocol was started. He is more sleepy this morning and more calm. KUB of the abdomen is reviewed by myself showing no significant obstruction Ultrasound of the right upper extremity reviewed by myself showing no deep venous thrombosis also with the radiologist 09/17/2023 Patient right forearm abscess looks similar to yesterday or slightly better, it showed significant improvement over the first 24 hours and currently improving slowly. Although the imaging were negative for an abscess but an occluded looks fluctuating so we consulted surgical team which is most likely they going to treat it conservatively as well Currently his been covered with IV vancomycin. Leukocytosis improved. His abdominal symptoms he had an admission also has improved, patient says he was able to eat yesterday with no issues with bowel movements. No nausea vomiting. Blood pressure elevated therefore we increased his clonidine 0.2 mg twice a day Continued on [facility] protocol 09/18/2023 Patient arrived from is improving, less redness about is becoming into a large fluctuant area in the proximal forearm ventrally Initial imaging showing no evidence of an abscess Currently patient has been followed closely by general surgery team for further evaluation and to examine the need for debridement or no. Remains on IV vancomycin No significant withdrawal symptoms We will lower his Librium dose 20 mg down to 10 mg 3 times a day, this taper can be continued and the next subsequent days Plan discussed with patient is agreeable 09/18. Patient seen and examined. Complaining of being anxious. States right arm pain has improved. Denies any fever or chills. REVIEW OF SYSTEMS: CONSTITUTIONAL: No fever, no malaise,. CARDIOVASCULAR: No chest pain, no palpitations, no syncope. PULMONARY: No shortness of breath, no cough, GASTROINTESTINAL: No diarrhea, no nausea, no vomiting, no abdominal pain. NEUROLOGICAL: No headaches, no weakness, PHYSICAL EXAMINATION: GENERAL: The patient is alert and oriented x3, not in any acute distress. Well developed, well nourished. HEENT: Pupils are round and equally reacting to light. EOMI. No scleral icterus. No conjunctival pallor. Normocephalic, atraumatic. No pharyngeal erythema. No thyromegaly. CARDIOVASCULAR: S1 and S2 present. No murmurs, rubs, or gallops. PULMONARY: Chest is clear to auscultation, no wheezing or crackles. ABDOMEN: Soft, nontender, nondistended, normoactive bowel sounds. No palpable organomegaly. MUSCULOSKELETAL: Right forearm dressing seen EXTREMITIES: No cyanosis, clubbing, or pedal edema. NEUROLOGICAL: Gross neurological examination did not reveal any focal deficits. SKIN: No rashes. Assessment and plan Acute right forearm cellulitis, severe on admission Sepsis with fever and leukocytosis, present on admission Substance abuse with opioids with IV drug abuse with fentanyl and others Alcohol use disorder with alcohol withdrawal and delirium tremens Nicotine dependence Anxiety, most likely related to substance abuse and withdrawal Monitor vital signs Monitor CBC Monitor CMP Continue telemetry monitoring Encourage use of incentive spirometer Follow-up blood culture Follow-up wound culture S/p Incision and drainage right forearm abscess Continue pharmacy dose vancomycin Continue wound care Continue pain management ID following Surgery following Labs and medication were reviewed.. Continue same treatment. Continue with symptomatic treatment. Resume home medication. Monitor labs and vitals. DVT and GI prophylaxis. Further recommendations as per clinical course of the patient Dictation was produced using [employer] dictation software. please excuse any grammatical, word or spelling errors. Objective - Vital Signs Vital signs: Vital Signs Temp 97.9 F 09/19/23 07:15 Pulse 68 09/19/23 07:15 Resp 20 09/19/23 07:15 BP 144/83 09/19/23 07:15 Pulse Ox 99 09/19/23 07:15 FiO2 Intake & Output 09/18/23 09/19/23 09/19/23 18:59 06:59 18:59 Intake Total 450 100 Output Total 25 Balance 450 75 Intake: IV 450 100 Output: Estimated Blood Loss 25 Other: Voiding Method Toilet # Voids 3 4 - Labs CBC & Chem 7: 09/19/23 07:45 09/19/23 07:45 Labs: Abnormal Lab Results - Last 24 Hours (Table) 09/18/23 09/18/23 09/19/23 Range/Units 07:46 07:46 07:45 Eosinophils # 0.52 H (0.04-0.35) X 10*3/uL Eosinophils # (Manual) 0.77 H (0-0.7) k/uL Potassium (3.5-5.1) mmol/L Chloride (98-107) mmol/L Creatinine (0.66-1.25) mg/dL C-Reactive Protein 3.30 H (0.00-0.80) mg/dL 09/19/23 Range/Units 07:45 Eosinophils # (0.04-0.35) X 10*3/uL Eosinophils # (Manual) (0-0.7) k/uL Potassium 3.4 L (3.5-5.1) mmol/L Chloride 111 H (98-107) mmol/L Creatinine 0.60 L (0.66-1.25) mg/dL C-Reactive Protein (0.00-0.80) mg/dL Microbiology - Last 24 Hours (Table) 09/17/23 14:54 Nasal Screen MRSA/MSSA - Final Nasal Swab 09/14/23 23:45 Blood Culture - Preliminary Blood 09/14/23 23:30 Blood Culture - Preliminary Blood
[2023-09-19] MEDS ORDERED: NICOTINE 21MG/24HR PATCH TRANSDERM SCH (13:30)
[2023-09-19 13:34] VITALS: BP 143/85; TEMP 98.2
--- NOTE | 2023-09-19 13:40 | P.PN ---
Subjective Progress Note Date: 09/19/23 CHIEF COMPLAINT: Right arm abscess HISTORY OF PRESENT ILLNESS: Patient postop day #1 status post incision and drainage of right forearm abscess. Patient is reporting pain. Denies any nausea or vomiting. Afebrile. Tolerated regular diet. WBC 9.6 potassium 3.4 and being replaced. Cultures pending PHYSICAL EXAM: VITAL SIGNS: Reviewed. GENERAL: Well-developed in no acute distress. Extremities right forearm decreased erythema and swelling. packing with serosanguineous drainage ASSESSMENT: 1. Right forearm abscess. Ultrasound now reporting evidence of fluid collection 2. IV drug use PLAN: -Packing to be changed today. Have patient shower and remove packing in the shower. Repack with Aquacel silver. Recommend changing packing every 48 hours -Continue antibiotics -Continue [place] as needed for pain -Continue regular diet Physician Management Information Systems Director note has been reviewed by physician. Signing provider agrees with the documented findings, assessment, and plan of care. I have personally seen and examined the patient, reviewed the EMERGENCY ROOM ORDERLY /PAs history, exam and MDM and agree with the assessment and plan as written. Based on total visit time, I have performed more than 50% of the visit. As above: Patient left earlier today AGAINST MEDICAL ADVICE. Objective - Vital Signs Vital signs: Vital Signs Temp 97.9 F 09/19/23 07:15 Pulse 68 09/19/23 07:15 Resp 20 09/19/23 07:15 BP 144/83 09/19/23 07:15 Pulse Ox 99 09/19/23 07:15 FiO2 Intake & Output 09/18/23 09/19/23 09/19/23 18:59 06:59 18:59 Intake Total 450 100 Output Total 25 Balance 450 75 Intake: IV 450 100 Output: Estimated Blood Loss 25 Other: Voiding Method Toilet Toilet # Voids 3 4 - Labs CBC & Chem 7: 09/19/23 07:45 09/19/23 07:45 Labs: Abnormal Lab Results - Last 24 Hours (Table) 09/19/23 09/19/23 Range/Units 07:45 07:45 Eosinophils # (Manual) 0.77 H (0-0.7) k/uL Potassium 3.4 L (3.5-5.1) mmol/L Chloride 111 H (98-107) mmol/L Creatinine 0.60 L (0.66-1.25) mg/dL Microbiology - Last 24 Hours (Table) 09/18/23 19:03 Gram Stain - Preliminary Arm - Right 09/18/23 19:06 Gram Stain - Preliminary Arm - Right 09/17/23 14:54 Nasal Screen MRSA/MSSA - Final Nasal Swab 09/14/23 23:45 Blood Culture - Preliminary Blood 09/14/23 23:30 Blood Culture - Preliminary Blood
[2023-09-19 15:34] VITALS: PULSE 68; RESP 14
--- NOTE | 2023-09-19 15:48 | P.PN ---
Subjective Progress Note Date: 09/19/23 Principal diagnosis: Reason for follow-up is right forearm abscess and cellulitis from IV drug use Patient is a 27-year-old male past medical history significant for bip olar depression and history of IV drug use presenting to the hospital with increasing pain swelling redness around the right forearm from IV drug use diagnosis and abscess and cellulitis. Patient did have a surgical drainage of right forearm abscess completed by surgery on 09/18/2023 cultures obtained. On today's visit that is 09/19/2023,the patient remains to be afebrile, patient is on room air not requiring supplemental oxygen and denies any shortness of breath no chest pain or cough.Patient denies having any nausea or vomiting, no abdominal pain, still complaining of pain to the right forearm about 6 out of 10. Patient white with 9.6, creatinine 0.60 Vanco trough is 14.5 cultures currently pending Objective - Vital Signs Vital signs: Vital Signs Temp 98.2 F 09/19/23 13:14 Pulse 78 09/19/23 13:14 Resp 20 09/19/23 07:15 BP 143/85 09/19/23 13:14 Pulse Ox 100 09/19/23 13:14 FiO2 Intake & Output 09/18/23 09/19/23 09/19/23 18:59 06:59 18:59 Intake Total 450 100 Output Total 25 Balance 450 75 Intake: IV 450 100 Output: Estimated Blood Loss 25 Other: Voiding Method Toilet Toilet # Voids 3 4 - Exam GENERAL DESCRIPTION: Middle-age male lying in bed in no distress RESPIRATORY SYSTEM: Unlabored breathing , decreased breath sounds at bases HEART: S1 S2 regular rate and rhythm , ABDOMEN: Soft , no tenderness EXTREMITIES: Right forearm currently dressed no drainage on the dressing - Labs CBC & Chem 7: 09/19/23 07:45 09/19/23 07:45 Labs: Abnormal Lab Results - Last 24 Hours (Table) 09/19/23 09/19/23 Range/Units 07:45 07:45 Eosinophils # (Manual) 0.77 H (0-0.7) k/uL Potassium 3.4 L (3.5-5.1) mmol/L Chloride 111 H (98-107) mmol/L Creatinine 0.60 L (0.66-1.25) mg/dL Microbiology - Last 24 Hours (Table) 09/18/23 19:03 Gram Stain - Preliminary Arm - Right 09/18/23 19:06 Gram Stain - Preliminary Arm - Right 09/17/23 14:54 Nasal Screen MRSA/MSSA - Final Nasal Swab 09/14/23 23:45 Blood Culture - Preliminary Blood 09/14/23 23:30 Blood Culture - Preliminary Blood Assessment and Plan (1) Abscess of right forearm Status: Acute Code(s): L02.413 - CUTANEOUS ABSCESS OF RIGHT UPPER LIMB SNOMED Code(s): 57481722185777639 (2) IV drug user Status: Acute Code(s): F19.90 - OTHER PSYCHOACTIVE SUBSTANCE USE, UNSPECIFIED, UNCOMPLICATED SNOMED Code(s): 489551044 Plan: 1patient was in the hospital right forearm pain swelling redness in this patient who did have history of injection drug use and apparently missed a vein while injecting into the right forearm with subsequent development of this abscess likely from gram-positive skin en gram-negative infection less likely but not entirely excluded 2-patient did have an area of significant fluctuance ultrasound confirmed an abscess and the patient status post surgical drainage 3. Patient to continue with the vancomycin while waiting for the culture to finalize to determine his discharge antibiotics Dictation was produced using [employer] dictation software. please excuse any grammatical, word or spelling errors. Time with Patient: Less than 30
== END 2023-09-19 14:15 | disposition left against medical advice (07) | DRG 710 ==
LOC: EC 21:12 → 4SSUR 09-15 00:51 → OBSVTOIN 09-15 00:51 → 4SSUR 09-15 01:10
PROVIDERS: ADMIT Internal Medicine; ATTEND Internal Medicine
PROC: 0J9G0ZZ Drainage of Right Lower Arm Subcutaneous Tissue and Fascia, Open Approach (ICD-10-PCS; principal; 2023-09-18 12:35)
DX: A41.9 Sepsis, unspecified organism (principal); F10.231 Alcohol dependence with withdrawal delirium; F11.188 Opioid abuse with other opioid-induced disorder; F10.288 Alcohol dependence with other alcohol-induced disorder; F31.9 Bipolar disorder, unspecified; R11.15 Cyclical vomiting syndrome unrelated to migraine; L02.413 Cutaneous abscess of right upper limb; L03.113 Cellulitis of right upper limb; Z71.6 Tobacco abuse counseling; Z79.899 Other long term (current) drug therapy
CPT/HCPCS: 36415; 74018; 80048; 80053; 80076; 80202; 82565; 83605; 85025; 86140; 87040; 87070; 87075; 87077; 87186; 87205; 93005; 94760; 96361; 96365; 96367; 96375; 96376; 99285